=== PATIENT | male | born 2000 | race Caucasian/White ===

== ENCOUNTER 2021-03-08 10:51 | Emergency (ER) | payer OTHER ==
[~2021-03-08] VITALS: Ht 160 cm; Wt 59.9 kg
[2021-03-08 10:52] VITALS: BP 135/74
[2021-03-08] MEDS ORDERED: NAPR500T6 PO (10:56)
[2021-03-08] MEDS ORDERED: PRAZ1CAP PO (10:56)
[2021-03-08] MEDS ORDERED: BENZ200C70 PO (13:14)
== END 2021-03-08 13:29 | disposition home or self-care (01) ==
LOC: M ED 10:51
DX: J06.9 Acute upper respiratory infection, unspecified (principal); B34.8 Other viral infections of unspecified site; Z20.822 Contact with and (suspected) exposure to COVID-19
CPT/HCPCS: 99282; U0003

== ENCOUNTER 2022-09-05 17:40 | Emergency (ER) | payer OTHER ==
[~2022-09-05] VITALS: Ht 160 cm; Wt 59.1 kg
[2022-09-05 17:40] VITALS: BP 135/84
[~2022-09-05 17:40] MED LIST: BENZ200C70 PO; NAPR500T6 PO; PRAZ1CAP PO
[2022-09-05] MEDS ORDERED: GABA-1171 (17:50)
[2022-09-05] MEDS ORDERED: MELO15TA28 (17:50)
[2022-09-05] MEDS ORDERED: METH-1164 (17:50)
[2022-09-05] MEDS: ACETAMINOPHEN TAB 650MG DOSE (2X325MG) PO ONE ×2 (19:25→19:30)
== END 2022-09-05 19:38 | disposition home or self-care (01) ==
LOC: M ED 17:40
DX: S43.402A Unspecified sprain of left shoulder joint, initial encounter (principal); W17.89XA Other fall from one level to another, initial encounter; Y92.89 Other specified places as the place of occurrence of the external cause; Y93.89 Activity, other specified; Y99.0 Civilian activity done for income or pay; Z79.899 Other long term (current) drug therapy